=== PATIENT | male | born 1965 | race Caucasian/White ===

== ENCOUNTER 2019-06-07 09:03 | Outpatient (CLI) | payer SELFPAY ==
[2019-06-07 11:25] LABS: Hemoglobin 15.8 g/dL (14.0-18.0); Mean Corpuscular HGB CONC 33.6 g/dL (32.0-36.0); Mean Corpuscular Hemoglobin 31.5 pg (27.0-31.0); Mean Corpuscular Volume 93.8 fL (78.0-98.0); Mean Platelet Volume 7.8 fL (7.4-10.4); Platelet Count 309 thou/uL (130-400); RBC Distribution Width 12.1 % (11.5-14.5); Red Blood Cell (RBC) Count 5.03 mill/uL (4.70-6.10)
[2019-06-07 11:31] LABS: Bilirubin Negative (Negative); Blood, Urine Trace (Negative); Clarity Clear (Clear); Glucose, Urine (Dipstick) Normal (Negative); Leukocyte Negative Leu/uL (Negative); Nitrite Negative (Negative); Protein, Urine (Dipstick) Negative (Neg-Trace); Squamous Epithelial None Seen HPF (0-3); Urobilinogen Normal mg/dL (Less than 2); WBC/HPF 0-3 HPF (0-3)
[2019-06-07 11:34] LABS: PTT 35.9 SEC (22.9-36.1)
[2019-06-07 11:35] LABS: Prothrombin Time 13.5 SEC (12.0-14.7)
[2019-06-07 11:53] LABS: Bacteria/HPF None Seen HPF (None Seen)
[2019-06-07 11:59] LABS: Anion Gap 13 mmol/L (10-20); BUN (Urea Nitrogen) 12 mg/dL (8.4-25.7); Calc. Creatinine Clearance 0 mL/min (70-130); Calcium 9.9 mg/dL (7.8-10.44); Carbon Dioxide 22 mmol/L (22-29); Chloride 108 mmol/L (98-107); Estimated GFR-MDRD 71; Glucose 78 mg/dL (70-105); Potassium 4.3 mmol/L (3.5-5.1); Sodium 139 mmol/L (136-145)
--- NOTE | 2019-06-08 22:55 | EKG ---
Test Reason : Blood Pressure : / mmHG Vent. Rate : 060 BPM Atrial Rate : 060 BPM P-R Int : 158 ms QRS Dur : 084 ms QT Int : 414 ms P-R-T Axes : 049 061 020 degrees QTc Int : 414 ms Normal sinus rhythm Normal ECG No previous ECGs available Confirmed by Kilo NAVA ([id number]) on 06/08/2019 10:55:35 PM Referred By: LYDIA Confirmed By:Kilo NAVA
== END 2019-06-07 09:04 | disposition home or self-care (01) ==
LOC: LABBT 09:03
PROVIDERS: ATTEND Urology
DX: Z01.818 Encounter for other preprocedural examination (principal); N20.0 Calculus of kidney
CPT/HCPCS: 80048; 81001; 85027; 85610; 85730; 87086; 93005; 93010

== ENCOUNTER 2019-06-09 09:47 | Day surgery (SDC) | payer SELFPAY ==
[2019-06-07 10:23] VITALS: BMI 169.5
[2019-06-09] MEDS ORDERED: Levofloxacin 500 mg/D5W 100 ml Premix Bag ONE (12:45)
--- NOTE | 2019-06-09 13:10 | RAD ---
KUB: 06/09/19 PROVIDED CLINICAL HISTORY: Left sided renal stone. FINDINGS: Correlation is made with the CT examination dated 06/02/19. The abdominal bowel gas pattern is nonspecific. There are no radiographically apparent urinary tract calculi. The osseous structures demonstrate no concerning lytic or blastic lesions. IMPRESSION: No radiographically apparent urinary tract calculi. POS: TPC
[2019-06-09] MEDS ORDERED: Fentanyl 100 MCG/2 ML VIAL ONE (13:38)
[2019-06-09] MEDS ORDERED: Iothalamate Meglumine 60% 50 ML VIAL FS ONE (13:50)
--- NOTE | 2019-06-09 15:07 | RAD ---
EXAM: XR IVP Retrograde PROVIDED CLINICAL HISTORY: Left ureteral calculus. COMPARISON: CT abdomen and pelvis on 06/02/2019. FINDINGS/IMPRESSION: 6 intraoperative fluoroscopic images from a left retrograde urogram are submitted for interpretation. No definite suspicious calcifications are seen on the nurse sane fluoroscopic image. Subsequent imaging demonstrates a guidewire and sheath overlying the left ureter. Final image demonstrates double pigtai l left ureteral stent in place. Correlation with intraoperative findings is recommended.
[2019-06-09] MEDS ORDERED: Phenazopyridine HCl 97.5 MG TABLET ONE (15:20)
[2019-06-09] MEDS ORDERED: Oxybutynin 5 MG TAB ONE (15:20)
[2019-06-09] MEDS ORDERED: Tamsulosin HCl 0.4 MG CAP ONE (15:20)
[2019-06-09] MEDS ORDERED: HYDROcodone/Acetaminophen 5/325 mg Tablet ONE ×2 (16:09)
--- NOTE | 2019-06-09 21:23 | OP ---
DATE OF PROCEDURE: 06/09/2019 PREOPERATIVE DIAGNOSIS: A 53-year-old stephon male with history of left 5 mm ureteral calculi with non-progression. POSTOPERATIVE DIAGNOSIS: A 53-year-old stephon male with history of left 5 mm ureteral calculi with non-progression. PROCEDURES PERFORMED: Cystoscopy, left retrograde pyelogram, dilation of the distal ureter, rigid ureteroscopy, flexible ureteroscopy, laser lithotripsy, basket extraction of stone, 6 x 28 double-J ureteral stent on Dangler tape to penis. ANESTHESIA: General. COMPLICATIONS: None apparent. DISPOSITION: To recovery room in stable condition. SPECIMENS: Stone for chemical analysis. INDICATIONS FOR PROCEDURE AND HISTORY: Mr. Sr is a pleasant 53-year-old male, who presented for evaluation of left distal ureteral calculi. He has required [place] periodically to control his discomfort. He has had no significant fever. He had a repeat CT scan in comparison to May 25 and June 02 demonstrating persistent stone nidus. As he presented to the emergency room twice in the last few weeks, he desires to proceed with treatment of his stone. Risks and complications including, but not limited to, bleeding, pain, infection, injury to adjacent organs, urosepsis, ureteral/renal/bladder injury reviewed. All questions answered to his satisfaction. He desired to proceed. DESCRIPTION OF PROCEDURE: After an informed consent was signed, the patient was taken to the operating room, placed in a dorsal lithotomy position with the genital area prepped and draped in usual surgical sterile fashion. Broad-spectrum antibiotics were provided. Bilateral BENNIE hose and SCDs were placed. A 21-Romanian cystoscope was utilized for cystoscopy, which demonstrated normal anterior posterior urethra. Bilateral collecting lateral lobes with no significant outlet obstruction were noted. Supra-verumontanal length approximately 2 to 3 cm. Bladder was entered, which demonstrated no evidence of bladder stone nidus of concern. The ureteral orifices identified about 5 to 6 mm from the bladder neck. The left UO was intubated with a 0.35 Sensor wire, it appeared to be small in caliber, not patulous. The wire was sent to the left upper pole without significant issues. We gently dilated the ureteral orifice, as the stone on CT demonstrated that it was near just proximal to the intramural ureter. I only passed the balloon dilator mostly to dilate the UO and part of the intramural ureter. After subsequent balloon dilatation, we passed a rigid ureteroscope. This was passed under direct visualization, the intramural ureter was traversed; however, the stone was seen as it migrated more proximally to the level of S3 ureter. Although, we were able to see the stone nidus; however, with the rigid, I could not actively engage the stone for successful vascular laser lithotripsy. Therefore, decision was made to transition to a flexible ureteroscope. A 10-Romanian dual-lumen access sheath was passed over the wire, and this was passed to the level of the intramural ureter and a 0.35 Super Stiff wire was placed into the left upper kidney. We gently passed an 11/13-Romanian x 28 cm navigator to the level of the stone not traversing proximal to it. The flexible ureteroscope was passed under direct visualization over guidewire assist. Stone was easily visualized. We did basket extract; however, the part of the stone broke off, we did retrieve part of the stone nidus on basket. Upon further visualization, the residual stone appeared to be at the level of the navigator sheath. Therefore, using 200 micron laser fiber, we laser lithotripsied the lead edge and successfully basket extracted the main stone nidus atraumatically. The ureter was surveyed, which demonstrated no evidence of ureteral mucosa trauma or perforation. No other stone was seen in the course of the ureter. At this time, the navigator was completely removed and a 6 x 28 double-J ureteral stent was passed over the Sensor wire. Good coil was seen in the kidney and the level of the bladder. Distal Dangler was left in situ as there was endoscopic clearance. The Dangler taped to the penis and bladder completely emptied. He tolerated the procedure well. He will follow up with me next week for stent pull on Dangler. He is discharged with ciprofloxacin for course of 7 days, tramadol 50 mg 1 to 2 p.o. q.6 hours p.r.n., Flomax #20, Azo p.r.n., and Colace p.r.n. Job ID: [id number]
== END 2019-06-09 17:36 | disposition home or self-care (01) ==
LOC: SDC 09:47
PROVIDERS: ATTEND Urology
PROC: 0T778DZ Dilation of Left Ureter with Intraluminal Device, Via Natural or Artificial Opening Endoscopic (ICD-10-PCS; principal; 2019-06-09)
PROC: 0TF78ZZ Fragmentation in Left Ureter, Via Natural or Artificial Opening Endoscopic (ICD-10-PCS; principal; 2019-06-09)
DX: N20.1 Calculus of ureter (principal); F17.290 Nicotine dependence, other tobacco product, uncomplicated; Z98.890 Other specified postprocedural states; Z87.442 Personal history of urinary calculi; Z79.899 Other long term (current) drug therapy; Z88.0 Allergy status to penicillin
CPT/HCPCS: 74018; 74420; 82365; 88300; C1758; C1769; J1956; J3010

== ENCOUNTER 2022-06-29 21:32 | Emergency (ER) | payer SELFPAY ==
[~2022-06-29 21:32] MED LIST: Iopamidol-370 76% 500 ML 1 ML ONE
[2022-06-30 00:02] LABS: #Eosinphils 0.3 thou/uL (0.0-0.7); #Lymphocytes 1.4 thou/uL (1.20-3.40); #Monocytes 0.5 thou/uL (0.11-0.59); #Neutrophils 2.3 thou/uL (1.40-6.50); %Basophils 0.3 % (0.0-1.0); %Eosinophils 6.1 % (0.0-10.0); %Lymphocytes 31.6 % (21.0-51.0); %Monocytes 11.4 % (0.0-10.0); %Neutrophils 50.6 % (42.0-75.0); Hemoglobin 14.7 g/dL (14.0-18.0); Mean Corpuscular HGB CONC 33.9 g/dL (32.0-36.0); Mean Corpuscular Volume 97.2 fL (78.0-98.0); Mean Platelet Volume 7.3 fL (7.4-10.4); Platelet Count 237 thou/uL (130-400); Red Blood Cell (RBC) Count 4.47 mill/uL (4.70-6.10); White Blood Cell (WBC) Count 4.5 thou/uL (4.8-10.8)
[2022-06-30 00:16] LABS: Bilirubin Negative (Negative); Blood, Urine Negative (Negative); Clarity Turbid (Clear); Glucose, Urine (Dipstick) Normal (Negative); Ketone, Urine Negative (Negative); Leukocyte Negative Leu/uL (Negative); Nitrite Negative (Negative); Protein, Urine (Dipstick) Negative (Neg-Trace); Specific Gravity, Urine 1.021 (1.002-1.036); Urobilinogen Normal mg/dL (Less than 2); pH, Urine 7.5 (5.0-9.0)
[2022-06-30 00:24] LABS: ALT (SGPT) 44 U/L (8-55); AST (SGOT) 22 U/L (5-34); Albumin 3.9 g/dL (3.5-5.0); Alkaline Phosphatase 46 U/L (40-110); Anion Gap 12 mmol/L (10-20); BUN (Urea Nitrogen) 12 mg/dL (8.4-25.7); Bilirubin, Total 0.4 mg/dL (0.2-1.2); Calc. Creatinine Clearance 0 mL/min (70-130); Carbon Dioxide 26 mmol/L (22-29); Chloride 107 mmol/L (98-107); Estimated GFR 87; Globulin 2.7 g/dL (2.4-3.5); Glucose 108 mg/dL (70-105); Lipase 36 U/L (8-78); Potassium 3.7 mmol/L (3.5-5.1); Protein, Total 6.6 g/dL (6.0-8.3); Sodium 141 mmol/L (136-145)
== END 2022-06-30 01:00 | disposition home or self-care (01) ==
LOC: ERS 21:32
DX: R10.9 Unspecified abdominal pain (principal); F17.220 Nicotine dependence, chewing tobacco, uncomplicated
CPT/HCPCS: 74177; 80053; 81003; 83690; 85025; 93005; Q9967

== ENCOUNTER 2022-07-03 01:18 | Emergency (ER) | payer SELFPAY ==
[2022-07-03 05:13] LABS: #Eosinphils 0.1 thou/uL (0.0-0.7); #Lymphocytes 1.9 thou/uL (1.20-3.40); #Monocytes 0.5 thou/uL (0.11-0.59); #Neutrophils 2.9 thou/uL (1.40-6.50); %Basophils 0.1 % (0.0-1.0); %Eosinophils 2.6 % (0.0-10.0); %Lymphocytes 34.4 % (21.0-51.0); %Monocytes 9.2 % (0.0-10.0); %Neutrophils 53.7 % (42.0-75.0); Hemoglobin 15.8 g/dL (14.0-18.0); Mean Corpuscular HGB CONC 33.5 g/dL (32.0-36.0); Mean Corpuscular Hemoglobin 32.1 pg (27.0-31.0); Mean Corpuscular Volume 95.8 fL (78.0-98.0); Platelet Count 258 thou/uL (130-400); RBC Distribution Width 11.8 % (11.5-14.5); Red Blood Cell (RBC) Count 4.91 mill/uL (4.70-6.10); White Blood Cell (WBC) Count 5.4 thou/uL (4.8-10.8)
[2022-07-03 05:37] LABS: ALT (SGPT) 56 U/L (8-55); AST (SGOT) 37 U/L (5-34); Albumin 4.3 g/dL (3.5-5.0); Alkaline Phosphatase 47 U/L (40-110); Anion Gap 14 mmol/L (10-20); BUN (Urea Nitrogen) 14 mg/dL (8.4-25.7); Bilirubin, Total 1.1 mg/dL (0.2-1.2); Calc. Creatinine Clearance 0 mL/min (70-130); Calcium 9.1 mg/dL (7.8-10.44); Carbon Dioxide 26 mmol/L (22-29); Chloride 102 mmol/L (98-107); Estimated GFR 82; Globulin 3.1 g/dL (2.4-3.5); Glucose 83 mg/dL (70-105); Lipase 71 U/L (8-78); Protein, Total 7.4 g/dL (6.0-8.3); Sodium 138 mmol/L (136-145)
== END 2022-07-03 07:32 | disposition home or self-care (01) ==
LOC: ERS 01:18
DX: R10.11 Right upper quadrant pain (principal); F17.220 Nicotine dependence, chewing tobacco, uncomplicated; F17.210 Nicotine dependence, cigarettes, uncomplicated
CPT/HCPCS: 76705; 80053; 83690; 85025

== ENCOUNTER 2022-09-21 18:11 | Emergency (ER) | payer SELFPAY ==
[2022-09-21] MEDS ORDERED: Acetaminophen 500 MG TAB ONE (18:28)
[2022-09-21] MEDS ORDERED: Ibuprofen 200 MG TAB ONE (18:28)
== END 2022-09-21 19:29 | disposition home or self-care (01) ==
LOC: ERS 18:11
DX: U07.1 COVID-19 (principal); F17.220 Nicotine dependence, chewing tobacco, uncomplicated
CPT/HCPCS: 99283